=== PATIENT | male | born 1975 | race Caucasian/White ===

== ENCOUNTER 2025-03-26 08:41 | Emergency (ER) | payer BC ==
[~2025-03-26] VITALS: Ht 182.9 cm; Wt 75.8 kg
[2025-03-26 08:46] VITALS: BP 107/81; PULSE 86; RESP 18; O2SAT 99
--- NOTE | 2025-03-26 09:36 | Physician Documentation ---
History of Present Illness ~ Chief Complaint: Wound Stated Complaint: LEG WOUNDS Time Seen by MD: 09:29 HPI THIS 49-YEAR-OLD MALE WITH A HISTORY OF THE LOWER EXTREMITY PATHOLOGY PRESENTS WITH BLISTERS AND WEEPING PARTICULARLY ON THE LEFT LOWER EXTREMITY. THE PATIENT HAS A POOR HISTORIAN BUT REPORTS THAT HIS SYMPTOMS HAVE ACTUALLY IMPROVED OVER THE LAST FEW DAYS. HE SAYS THAT HE FELL ASLEEP ON [place] AND INCURRED A SEVERE SUNBURN. MAIN COMPLAINT IS THE BURNING AND INCREASED SWELLING DISTAL ASPECT OF HIS LOWER EXTREMITIES. PATIENT ADDS THT HE IS ALSO A METHADONE PATIENT Medication Reconciliation Allergies: Coded Allergies: No Known Allergies (Unverified , 03/26/25) Review of Systems All Other Systems at this time: Reviewed and Negative ROS As stated above in the HPI, otherwise all systems are reviewed and negative. Physical Exam Vital Signs: Temperature: 98.3, Source: Temporal, Heart Rate: 86, Respiratory Rate: 18, BP: 107/81, Pulse Oximetry: 99, Weight: 75.800 Oxygen Flow Rate: 0 Physical Exam General: Alert, no apparent distress. . Respiratory: Lungs clear, no respiratory distress. Chest: No accessory muscle use. Extremities: Normal range of motion, PURPLE DISCOLORATION bl le , WITH LARGE BLISTERS IN VARIOPUS STAGES OF HEAL;ING, NOTABLE SWELLING AND WHEEPING Neurologic: Oriented x4. Psychiatric: Normal mood and affect. Skin: Normal color, warm and dry. No edema, no ecchymosis. Progress Results/Orders Results/Orders Orders - LUIS STEPHENS [employer] Culture Blood (03/26/25 09:37) Urinalysis, Cult If Indicated (03/26/25 09:37) Chest,Single View (03/26/25 09:37) Monitor (03/26/25 09:37) Saline Lock (03/26/25 09:37) * Additional Wound Care Orders (03/26/25 11:53) General Nursing Order (03/26/25 ) Completed Orders - LUIS STEPHENS [employer] Cbc/Diff (03/26/25 09:37) Chest,Single View (03/26/25 09:37) Procalcitonin (03/26/25 09:37) BMP (03/26/25 09:37) Lacticsepsis (03/26/25 09:37) PBNP (03/26/25 09:54) Vital Signs 03/26/25 08:46 Temp 98.3 Pulse 86 Resp 18 B/P (MAP) 107/81 Pulse Ox 99 O2 Flow Rate 0 Laboratory Tests Test 03/26/25 09:51 03/26/25 09:54 Lactic Acid Level 0.7 White Blood Count 8.8 Red Blood Count 4.88 Hemoglobin 14.8 Hematocrit 44.2 Mean Corpuscular Volume 90.6 Mean Corpuscular Hemoglobin 30.4 Mean Corpuscular Hemoglobin Concent 33.6 Red Cell Distribution Width 14.3 Platelet Count 360 Mean Platelet Volume 6.8 L Neutrophils (%) (Auto) 66.2 Lymphocytes (%) (Auto) 19.1 L Monocytes (%) (Auto) 7.9 Eosinophils (%) (Auto) 5.5 Basophils (%) (Auto) 1.3 H Neutrophils # (Auto) 5.8 Lymphocytes # (Auto) 1.7 Monocytes # (Auto) 0.7 Eosinophils # (Auto) 0.5 Basophils # (Auto) 0.1 CBC Comment Sodium Level 143 Potassium Level 4.0 Chloride Level 104 Carbon Dioxide Level 31.2 Anion Gap 8 Blood Urea Nitrogen 12 Creatinine 0.91 Estimated GFR/1.73 m2 88 BUN/Creatinine Ratio 13.2 Glucose Level 95 Calcium Level 8.9 Pro-B-Type Natriuretic Peptide 96 Albumin 3.5 Procalcitonin < 0.05 Chemistry Comments Microbiology Date/Time Source Procedure Growth Status 03/26/25 09:54 Blood Arm Right Blood Culture - Preliminary NEGATIVE (LESS THAN 24 HOURS) Resulted Medical Decision Making Findings MALE I WAS INITIALLY CONCERNED FOR INCREASED LOWER EXTREMITY SWELLING SECONDARY TO POTENTIAL CHF OR WORSENING SUNBURN PROBNP CAME BACK NORMAL I DID OFFER HOSPITAL ADMISSION PATIENT DECLINED HE DID NOT PRESENT WITH ANY SIGNS OF INFECTION,NORMAL WBCS PROVIDED PATIENT WITH THE APPROPRIATE WOUND CARE AND ADVISED HIM TO FOLLOW UP NAIL PATIENT'S Differential Dx:Considerations: Include: Abscess, Cellulitis, Dressing change, Healing wound, Other Departure Disposition: 01 HOME / SELF CARE / HOMELESS Impression: Primary Impression: Wound Additional Impressions: Sun-damaged skin Sunburn Condition: Stable Discharge Instructions: How to Change Your Wound Dressing Referrals: NO PRIMARY CARE PROVIDER (PCP) Signature Scribe Signature: G Attestation: Scribed for Luis Stephens Hitting Coach by Luis Romero NP . 03/26/25 09:35 LUIS STEPHENS NP Mar 26, 2025 09:36
--- NOTE | 2025-03-26 10:03 | RADIOLOGY REPORT ---
CHEST RADIOGRAPH Indication: INFECTION Technique: Single frontal view of the chest was obtained COMPARISON: None FINDINGS: Lines and Tubes: None Lungs: Clear Pleura: No effusion. No pneumothorax. Cardiomediastinal contours: Unremarkable Bones: Unremarkable IMPRESSION: No acute disease.
[2025-03-26 10:08] LABS: BASOPHILS # (AUTO) 0.1 X10'3 (0-0.2); BASOPHILS % (AUTO) 1.3 % (0-1); EOSINOPHILS # (AUTO) 0.5 X10'3 (0-0.9); EOSINOPHILS % (AUTO) 5.5 % (0-6); HEMATOCRIT 44.2 % (42.0-52.0); HEMOGLOBIN 14.8 g/dl (14.0-17.9); LYMPHOCYTES # (AUTO) 1.7 X10'3 (1.1-4.8); LYMPHOCYTES % (AUTO) 19.1 % (21-51); MEAN CORPUSCULAR HEMOGLOBIN 30.4 PG (27.0-31.0); MEAN CORPUSCULAR HGB CONC 33.6 g/dL (33.0-36.5); MEAN CORPUSCULAR VOLUME 90.6 FL (78-98); MEAN PLATELET VOLUME 6.8 FL (7.4-10.4); MONOCYTES # (AUTO) 0.7 X10'3 (0-0.9); MONOCYTES % (AUTO) 7.9 % (2-12); NEUTROPHILS # (AUTO) 5.8 X10'3 (1.8-7.7); NEUTROPHILS % (AUTO) 66.2 % (42-75); PLATELET COUNT 360 X10'3 (140-440); RED BLOOD COUNT 4.88 X10'6 (4.70-6.10); RED CELL DISTRIBUTION WIDTH 14.3 % (11.5-14.5); WHITE BLOOD COUNT 8.8 X10'3 (4.5-11.0)
[2025-03-26 10:26] LABS: ALBUMIN 3.5 G/DL (3.4-5.0); ANION GAP 8 (8-16); BLOOD UREA NITROGEN 12 MG/DL (7-18); BUN/CREATININE RATIO 13.2 (10.0-20.0); CALCIUM 8.9 MG/DL (8.5-10.1); CHLORIDE 104 MMOL/L (99-107); CREATININE 0.91 MG/DL (0.60-1.10); GLUCOSE 95 MG/DL (70-104); SODIUM 143 MMOL/L (135-145); TOTAL CARBON DIOXIDE 31.2 MMOL/L (24-32); eCRCL 104 ML/MIN; eGFR 88 ML/MIN
[2025-03-26 11:52] LABS: PRO BRAIN NATRIURETIC PEPTIDE 96 PG/ML (0-125)
[2025-03-26 12:28] VITALS: TEMP 98.3
== END 2025-03-26 12:29 | disposition home or self-care (01) ==
LOC: ER 08:42
DX: T24.202A Burn of second degree of unspecified site of left lower limb, except ankle and foot, initial encounter (principal); T24.201A Burn of second degree of unspecified site of right lower limb, except ankle and foot, initial encounter; L55.9 Sunburn, unspecified; X32.XXXA Exposure to sunlight, initial encounter; Y93.89 Activity, other specified; Y92.89 Other specified places as the place of occurrence of the external cause; Y99.8 Other external cause status
CPT/HCPCS: 36415; 71045; 80048; 83605; 83880; 84145; 85025; 87040; 99284; A6223; A6449